=== PATIENT | female | born 1990 | race Caucasian/White ===

== ENCOUNTER 2019-05-17 10:11 | Emergency (ER) | payer OTHER ==
[~2019-05-17] VITALS: Ht 177.8 cm; Wt 63.6 kg
[2019-05-17] MEDS ORDERED: PROMETH-CODEIN 65 ML PO (10:51)
[2019-05-17 10:59] VITALS: BP 122/69
== END 2019-05-17 11:02 | disposition home or self-care (01) ==
LOC: ED 10:11
DX: J06.9 Acute upper respiratory infection, unspecified (principal); F32.9 Major depressive disorder, single episode, unspecified